=== PATIENT | female | born 1965 | race Caucasian/White ===

== ENCOUNTER 2018-08-05 22:33 | Emergency (ER) | payer MEDICAID ==
[~2018-08-05] VITALS: Ht 166.4 cm; Wt 86.4 kg
[2018-08-05 23:44] VITALS: BP 139/89
== END 2018-08-05 23:55 | disposition home or self-care (01) ==
LOC: EMS 22:35
DX: R00.2 Palpitations (principal); F10.129 Alcohol abuse with intoxication, unspecified; F17.210 Nicotine dependence, cigarettes, uncomplicated
CPT/HCPCS: 93005